=== PATIENT | male | born 1985 | race Caucasian/White ===

== ENCOUNTER 2016-06-21 17:34 | Emergency (ER) | payer MEDICAID ==
[~2016-06-21] VITALS: Ht 180.3 cm; Wt 93.0 kg
[2016-06-21 17:34] VITALS: BP 124/56; PULSE 81; RESP 16; TEMP 97.2; O2SAT 99
--- NOTE | 2016-06-21 17:34 | NUR ---
SANA Markham, Patient to ER bed 02 to gown for evaluation. Side rails up. Report given to ZA Barker.
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
--- NOTE | 2016-06-21 17:46 | NUR ---
ER MD Tucker at bedside for evaluation
--- NOTE | 2016-06-21 18:07 | NUR ---
Patient off the unit via gurney for xray
--- NOTE | 2016-06-21 19:11 | NUR ---
Patient back from radiology via gurney.
[2016-06-21] MEDS ORDERED: ONDANSETRON 4 MG ODT TAB PO ONE (19:30)
[2016-06-21] MEDS ORDERED: HYDROmorphone 1 MG INJ. 1 MG/ML AMPUL IM ONE (19:30)
--- NOTE | 2016-06-21 19:54 | NUR ---
ER MD Tucker at bedside discussing plan of care with the patient
[2016-06-21 20:14] VITALS: BP 127/69; PULSE 85; RESP 16; TEMP 97.8; O2SAT 98
--- NOTE | 2016-06-21 20:14 | NUR ---
Patient given written and verbal discharge instructions and verbalizes understanding. ER MD Tucker discussed with patient the results and treatment provided. Patient in stable condition. ID arm band removed. Rx of norco & motrin given. Patient educated on pain management and to follow up with PMD. Pain Scale 0/10. Opportunity for questions provided and answered.
== END 2016-06-21 20:14 | disposition home or self-care (01) ==
LOC: SED 17:34
DX: S62.502A Fracture of unspecified phalanx of left thumb, initial encounter for closed fracture (principal); M25.562 Pain in left knee; R51 Headache; Z88.5 Allergy status to narcotic agent; Z88.6 Allergy status to analgesic agent; V13.4XXA Pedal cycle driver injured in collision with car, pick-up truck or van in traffic accident, initial encounter; Y93.I9 Activity, other involving external motion; Y92.89 Other specified places as the place of occurrence of the external cause; Y99.8 Other external cause status
CPT/HCPCS: 29125; 70450; 71010; 72125; 73140; 73552; 73564; 96372; 99284; J1170; Q0162